=== PATIENT | male | born 1975 | race Hispanic/Latino ===

== ENCOUNTER 2020-08-09 12:38 | Emergency (ER) | payer OTHER ==
[2020-08-09] MEDS ORDERED: Ketorolac Tromethamine 30 MG/ML VIAL ONE (13:29)
== END 2020-08-09 15:50 | disposition home or self-care (01) ==
LOC: ERS 12:38
DX: S43.005A Unspecified dislocation of left shoulder joint, initial encounter (principal); S16.1XXA Strain of muscle, fascia and tendon at neck level, initial encounter; V59.40XA Driver of pick-up truck or van injured in collision with unspecified motor vehicles in traffic accident, initial encounter
CPT/HCPCS: 23650; 71046; 72125; 96372; J1885